=== PATIENT | female | born 1985 | race Caucasian/White ===

== ENCOUNTER 2017-03-21 21:08 | Emergency (ER) | payer BC ==
[~2017-03-21] VITALS: Ht 162.6 cm; Wt 60.7 kg
[~2017-03-21 21:08] MED LIST: AMOXICILLIN500 MG PO; ATIVAN0.5 MG PO; B-122500 MC1 SL; BALANCED B COM1 EAC2 PO; BIOTIN 5000MCG PO; BIOTIN PLUS KE1 EACH PO; CALCIUM 600 MG1 EACH PO; CALCIUM CITRAT1 EA18 PO; CIPRO500 MG PO; CYCLOBENZAPRINE10 MG PO; FLEXERIL10 MG PO; FLUOXETINE HCL40 MG PO; FLUOXETINE HCL60 MG PO; HYDROCODON-ACE1 EAC7 PO; LORAZEPAM0.5 MG PO; MERCAPTOPURINE50 MG PO; MIRENA52 MG IY; PERCOCET 5/31 TABLET PO; PREDNISONE20 MG PO; PRILOSEC20 MG PO; PRILOSEC40 MG PO; PROZAC20 MG PO; ROZEREM8 MG PO; TOPIRAMATE50 MG PO; TORADOL10 MG PO; TRAMADOL HCL50 MG PO; TRAZODONE HCL50 MG PO; TYLENOL REGULA325 MG PO; VITAMIN B-125000 MCG SL; WOMEN'S DAILY1 EAC1 PO
[2017-03-21 22:02] LABS: HEMATOCRIT 36.5 % (36.0-46.0); MCH 32.1 PG (29.0-34.0); MCV 94.6 FL (83-99); MEAN PLAT.VOLUME 9.8 uM^3 (9.5-12.4); PLATELET COUNT 244 K/uL (156-360); RBC DIS.WIDTH-CV 13.2 % (11.8-14.6); RBC DIS.WIDTH-SD 46.2 % (39-53); RED BLOOD COUNT 3.86 M/uL (3.80-5.20); WHITE BLOOD COUNT 9.2 K/uL (4.1-10.2)
[2017-03-21 22:05] LABS: BILIRUBIN NEGATIVE; BLOOD NEGATIVE; COLOR YELLOW ((YELLOW)); GLUCOSE (STRIP) NEGATIVE; KETONES NEGATIVE; LEUKOCYTES NEGATIVE; NITRITE NEGATIVE; PROTEIN (STRIP) NEGATIVE; UROBILINOGEN 0.2 MG/DL (0.2-1.0)
[2017-03-21 22:16] LABS: ADD MIUA? NO; UCUL ADDED? NO
[2017-03-21 22:16] LABS: CHLORIDE 110 mEq/L (99-109); POTASSIUM 4.2 mEq/L (3.7-5.4); SODIUM 139 mEq/L (136-147)
[2017-03-21 22:17] LABS: GLUCOSE 84 mg/dL (70-99)
[2017-03-21 22:19] LABS: ANION GAP 8 MEQ/L (2-14)
[2017-03-21 22:21] LABS: GFR ESTIMATE (CALCULATED) > 59 mL/min/
[2017-03-21 22:22] LABS: UREA NITROGEN (BUN) 16 mg/dL (9-23)
[2017-03-21 22:31] LABS: QUANTITATIVE HCG < 4.0 MIU/ML
[2017-03-21 23:50] VITALS: BP 114/68
== END 2017-03-21 23:52 | disposition home or self-care (01) ==
LOC: EME 21:08 → RME 21:08
PROVIDERS: Physician Assistant
DX: K51.90 Ulcerative colitis, unspecified, without complications (principal); G43.909 Migraine, unspecified, not intractable, without status migrainosus; K21.9 Gastro-esophageal reflux disease without esophagitis; Z87.891 Personal history of nicotine dependence
CPT/HCPCS: 74177; 80048; 81003; 84702; 85027; 99281; 99284; J1200; J2270; J2405; J3010; J7030

== ENCOUNTER 2017-03-30 12:34 | Day surgery (SDC) | payer BC ==
[~2017-03-30] VITALS: Ht 162.6 cm; Wt 59.0 kg
[~2017-03-30 12:34] MED LIST changes: +UCERIS9 MG PO
[2017-03-30 13:03] VITALS: BP 93/60
[2017-03-30] MEDS ORDERED: NORCO 5/3251 TABLET PO (19:49)
[2017-03-30 20:00] VITALS: BP 116/74
[2017-03-30 21:05] VITALS: BP 115/65
== END 2017-03-30 21:20 | disposition home or self-care (01) ==
LOC: SDC 12:34
PROC: 0WUF0JZ Supplement Abdominal Wall with Synthetic Substitute, Open Approach (ICD-10-PCS; principal; 2017-03-30)
DX: K43.2 Incisional hernia without obstruction or gangrene (principal); F41.8 Other specified anxiety disorders; K51.90 Ulcerative colitis, unspecified, without complications; Z88.2 Allergy status to sulfonamides; Z87.891 Personal history of nicotine dependence; K21.9 Gastro-esophageal reflux disease without esophagitis
CPT/HCPCS: C1781; J0131; J0690; J2250; J3010; S0020